=== PATIENT | female | born 1985 | race Caucasian/White ===

== ENCOUNTER 2016-08-19 17:33 | Emergency (ER) | payer OTHER ==
--- NOTE | 2016-08-19 18:15 | DIAGNOSTIC IMAGING REPORT ---
PROCEDURE: XR CHEST 2 VIEW INDICATION: FEVER, initial encounter TECHNIQUE: PA and lateral view. COMPARISON: None. FINDINGS: Lungs are clear. Cardiovascular structures are normal. Bony thorax is unremarkable. IMPRESSION: 1. Negative chest.
--- NOTE | 2016-08-19 18:19 | ED ORDER SUMMARY ---
..... Patient: MARLENA NESS OrderSheet [facility] VisitID: [id number] [address] [place] [place] [address] 30y, F Registration Date/Time: 08/19/2016 ORDER SHEET Weight: 59.8 kg (stated) Allergies: No Known Drug Allergy GENERAL ORDERS: Chest 2V Urgent (18:00 08/19/2016 Kami Lombardo) (Ack 18:02 LTapper) (18:19 Consuelo R.N.) MEDICATION ORDERS: Tylenol w Codeine PO 10 mL (HIGH ALERT MEDICATION, NOW) (17:59 08/19/2016 Kami Lombardo) (18:06 Consuelo R.N.) IV FLUIDS: ORDER SHEET NOTES: [Electronically signed by Jovita Chew P.A.-C (18:28 08/19/2016)] [Electronically signed by Areli Rolle R.N. (18:34 08/19/2016)] [Electronically locked/signed by Areli Rolle R.N. (18:34 08/19/2016)]
--- NOTE | 2016-08-19 18:19 | ED CLINICAL REPORT ---
Clinical Report - Physicians/Mid Levels [facility] [address] [place] [address] 08/19/2016 17:37 Patient: MARLENA NESS Time Seen: 18:04 Aug 19 2016. Arrived- By private vehicle. Historian- patient. HISTORY OF PRESENT ILLNESS Chief Complaint: COUGH, SORE THROAT, FEVER and CHILLS. 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 The illness is described as mild. The patient has had a cough, a sore throat, hoarseness, nasal congestion and a nasal discharge. No sputum production or chest discomfort or pain. She has had fever (low grade up to 100). (Patient reports generalized flulike symptoms over the last 7 days, which are improving, however she has not persisted with a cough. Multiple sick contacts ill at home, including HER-2 children. No recent travel. No hemoptysis. Over the last few days patient is also told a superior orbital left side headache, with nausea, associated with similar symptoms from her chronic migraines. PT sees neurology, next visit in 7-10 days.). Additional history - The patient has had contact with a sick individual. No recent travel. REVIEW OF SYSTEMS Last normal menstrual period now. She has had a headache and nausea. No vomiting, diarrhea, pedal edema or calf pain. All systems otherwise negative, except as recorded above. PAST HISTORY No history of asthma. Problems: Hemiplegic migraines. Additional Surgeries: . LEEP. Oophorectomy. Shoulder Surgery. Medications: None. Allergies: No Known Drug Allergy. SOCIAL HISTORY Never smoker. Alcohol use. ADDITIONAL NOTES The nursing notes have been reviewed. PHYSICAL EXAM Vital Signs: 08/19/2016 17:49 BP: 114/85. HR: 80. RR: 18. O2 saturation: 100%. Temp: 99.1 F. Pain level now: 5/10. Appearance: Alert. No apparent distress. Head: No tenderness to palpation/percussion over the sinuses. Eyes: Eyes normal inspection. ENT: Ears normal. Pharynx normal. Uvula midline. No nasal discharge, pharyngeal erythema, mouth ulcerations or peritonsillar mass. Neck: Normal inspection. No meningeal signs or lymphadenopathy. CVS: Normal heart rate and rhythm. Heart sounds normal. Respiratory: No respiratory distress. Breath sounds normal. No splinting. Back: Normal inspection. No CVA tenderness. Skin: Skin warm. Normal skin color. Neuro: Oriented X 3. No motor deficit. LABS, X-RAYS, AND EKG Chest X-ray: (IMPRESSION: 1. Negative chest. Electronically Final signed by:Tal Correa MD 08/19/2016 6:15:41 PM). PROGRESS AND PROCEDURES Course of Care: lungs clear, good o2 sat, afebrile, normacardic, no further acute work up in er. No hemoptysis, no foreign travel. Likely residual of flue sx, with early bronchitis, suspected viral as well. Pt in the er with tee, that is consistent with what she describes as common tee for her, suspicion for new tee due to meningitis/ ich/ sah is low given her typical sx, that do not acutely appear to be debilitating. Patient is stable. Physical exam findings are improved. Symptoms better. Patient/family counseled. Differential Diagnosis: I considered viral bronchitis, laryngotracheobronchitis, croup, viral pneumonia, bacterial bronchitis, bacterial tracheobronchitis, bacterial pneumonia, tuberculosis, lung abscess, mycoplasmal bronchitis, mycoplasmal pneumonia, chlamydial bronchitis, chlamydial pneumonia, bronchospasm, allergic bronchospasm, irritant bronchospasm, lung cancer, pulmonary embolism and adverse drug reaction as a possible cause of cough in this patient. This is a partial list of diagnoses considered. Disposition: Discharged. CLINICAL IMPRESSION Acute upper respiratory infection. Headache. INSTRUCTIONS (humidified air/ steam). Prescription Medications: Robitussin A-C cough syrup take one (1) teaspoon orally every 6 hours as needed for cough for 3 days. Dispense sixty (60) mL. No refill. Substitution is permissible. Tessalon Perles 100 mg: take 1 orally every 8 hours as needed for cough. Dispense ten (10). No refills. Substitution is permissible. OTC Medications: Take OTC medications according to label instructions. Available over the counter. Acetaminophen (available over the counter): take according to label instructions. Motrin (available over the counter): take according to label instructions. Follow-up: Follow up with your doctor Tuesday if not well. (Electronically signed by Jovita Chew P.A.-C 08/19/2016 18:28)
--- NOTE | 2016-08-19 18:19 | ED CLINICAL REPORT ---
Clinical Report - Physicians/Mid Levels [facility] [address] [place] [address] 08/19/2016 17:37 Patient: MARLENA NESS Time Seen: 18:04 Aug 19 2016. Arrived- By private vehicle. Historian- patient. HISTORY OF PRESENT ILLNESS Chief Complaint: COUGH, SORE THROAT, FEVER and CHILLS. 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 The illness is described as mild. The patient has had a cough, a sore throat, hoarseness, nasal congestion and a nasal discharge. No sputum production or chest discomfort or pain. She has had fever (low grade up to 100). (Patient reports generalized flulike symptoms over the last 7 days, which are improving, however she has not persisted with a cough. Multiple sick contacts ill at home, including HER-2 children. No recent travel. No hemoptysis. Over the last few days patient is also told a superior orbital left side headache, with nausea, associated with similar symptoms from her chronic migraines. PT sees neurology, next visit in 7-10 days.). Additional history - The patient has had contact with a sick individual. No recent travel. REVIEW OF SYSTEMS Last normal menstrual period now. She has had a headache and nausea. No vomiting, diarrhea, pedal edema or calf pain. All systems otherwise negative, except as recorded above. PAST HISTORY No history of asthma. Problems: Hemiplegic migraines. Additional Surgeries: . LEEP. Oophorectomy. Shoulder Surgery. Medications: None. Allergies: No Known Drug Allergy. SOCIAL HISTORY Never smoker. Alcohol use. ADDITIONAL NOTES The nursing notes have been reviewed. PHYSICAL EXAM Vital Signs: 08/19/2016 17:49 BP: 114/85. HR: 80. RR: 18. O2 saturation: 100%. Temp: 99.1 F. Pain level now: 5/10. Appearance: Alert. No apparent distress. Head: No tenderness to palpation/percussion over the sinuses. Eyes: Eyes normal inspection. ENT: Ears normal. Pharynx normal. Uvula midline. No nasal discharge, pharyngeal erythema, mouth ulcerations or peritonsillar mass. Neck: Normal inspection. No meningeal signs or lymphadenopathy. CVS: Normal heart rate and rhythm. Heart sounds normal. Respiratory: No respiratory distress. Breath sounds normal. No splinting. Back: Normal inspection. No CVA tenderness. Skin: Skin warm. Normal skin color. Neuro: Oriented X 3. No motor deficit. LABS, X-RAYS, AND EKG Chest X-ray: (IMPRESSION: 1. Negative chest. Electronically Final signed by:Tal Correa MD 08/19/2016 6:15:41 PM). PROGRESS AND PROCEDURES Course of Care: lungs clear, good o2 sat, afebrile, normacardic, no further acute work up in er. No hemoptysis, no foreign travel. Likely residual of flue sx, with early bronchitis, suspected viral as well. Pt in the er with tee, that is consistent with what she describes as common tee for her, suspicion for new tee due to meningitis/ ich/ sah is low given her typical sx, that do not acutely appear to be debilitating. Patient is stable. Physical exam findings are improved. Symptoms better. Patient/family counseled. Differential Diagnosis: I considered viral bronchitis, laryngotracheobronchitis, croup, viral pneumonia, bacterial bronchitis, bacterial tracheobronchitis, bacterial pneumonia, tuberculosis, lung abscess, mycoplasmal bronchitis, mycoplasmal pneumonia, chlamydial bronchitis, chlamydial pneumonia, bronchospasm, allergic bronchospasm, irritant bronchospasm, lung cancer, pulmonary embolism and adverse drug reaction as a possible cause of cough in this patient. This is a partial list of diagnoses considered. Disposition: Discharged. CLINICAL IMPRESSION Acute upper respiratory infection. Headache. INSTRUCTIONS (humidified air/ steam). Prescription Medications: Robitussin A-C cough syrup take one (1) teaspoon orally every 6 hours as needed for cough for 3 days. Dispense sixty (60) mL. No refill. Substitution is permissible. Tessalon Perles 100 mg: take 1 orally every 8 hours as needed for cough. Dispense ten (10). No refills. Substitution is permissible. OTC Medications: Take OTC medications according to label instructions. Available over the counter. Acetaminophen (available over the counter): take according to label instructions. Motrin (available over the counter): take according to label instructions. Follow-up: Follow up with your doctor Tuesday if not well. (Electronically signed by Jovita Chew P.A.-C 08/19/2016 18:28)
--- NOTE | 2016-08-19 18:19 | ED ORDER SUMMARY ---
..... Patient: MARLENA NESS OrderSheet [facility] VisitID: [id number] [address] [place] [address] 30y, F Registration Date/Time: 08/19/2016 ORDER SHEET Weight: 59.8 kg (stated) Allergies: No Known Drug Allergy GENERAL ORDERS: Chest 2V Urgent (18:00 08/19/2016 Kami Lombardo) (Ack 18:02 LTapper) (18:19 Consuelo R.N.) MEDICATION ORDERS: Tylenol w Codeine PO 10 mL (HIGH ALERT MEDICATION, NOW) (17:59 08/19/2016 Kami Lombardo) (18:06 Consuelo R.N.) IV FLUIDS: ORDER SHEET NOTES: [Electronically signed by Jovita Chew P.A.-C (18:28 08/19/2016)] [Electronically signed by Areli Rolle R.N. (18:34 08/19/2016)] [Electronically locked/signed by Areli Rolle R.N. (18:34 08/19/2016)]
--- NOTE | 2016-08-19 18:19 | ED NURSING NOTES ---
Clinical Report - Nurses [facility] [address] [place] [address] 08/19/2016 17:37 Patient: MARLENA NESS TRIAGE Triage time 17:49. Acuity: LEVEL 3. Chief Complaint: COUGH and FEVER. Alert. No acute distress. EVER COMA SCORE: [place] Coma Scale: 15- eyes open spontaneously (4); best verbal response- oriented x 4 (5); best motor response- obeys commands (6). --17:54 Kenya Murray R.N. 17:49 08/19/16. BP: 114/85. HR: 80. RR: 18. O2 saturation: 100%. Temp: 99.1 F (oral). Pain level now: 5/10. --17:54 Kenya Murray R.N. Weight: 59.8 kg stated. Height/Length: 64 inches Per Patient. BMI: 22.6. --17:53 Kenya Murray R.N. Medications None. --17:50 Kenya Murray R.N. Medication/allergy information source: the patient. --17:54 Kenya Murray R.N. Allergies No Known Drug Allergy. --17:50 Kenya Murray R.N. History Arrived by private vehicle. Historian: patient. Unaccompanied. Primary physician (Devi). Onset. (about 9 days). She has had a headache. PAST MEDICAL HX: Last normal menstrual period now. SOCIAL HX: Smoker- current status unknown (no). Occasional alcohol use. No drug use. FALL RISK ASSESSMENT: Fall risk assessment completed. No fall risk identified. FUNCTIONAL ASSESSMENT: Functional assessment: no impairments noted. LEARNING NEEDS ASSESSMENT: The learning needs assessment revealed no barriers. --17:54 Kenya Murray R.N. PROBLEMS: Hemiplegic migraines. --17:52 Kenya Murray R.N. ADDITIONAL SURGERIES: . LEEP. Oophorectomy. Shoulder Surgery. --17:52 Kenya Murray R.N. Assessment GENERAL / NEURO / PSYCH: Alert. Oriented X 4. Appears in no acute distress. Patient appears calm and cooperative. RESPIRATORY: Respirations not labored. SKIN: Skin is warm and dry. --17:54 Kenya Murray R.N. Interventions ID band on patient. To treatment room. --17:54 Kenya Murray R.N. PHYSICAL ASSESSMENT Ambulatory to room. GENERAL / NEURO / PSYCH: Oriented X 4. Appears in no acute distress. HEENT: Pupils equal, round and reactive to light. RESPIRATORY: Cough. CVS: Capillary refill less than 2 seconds. SKIN: Skin is warm and dry. --18:32 Areli Rolle R.N. NURSING PROGRESS NOTES 18:06 08/19/2016 TYLENOL W CODEINE (Acetaminophen-Codeine) PO 10 mL given. Allergies verified and confirmed 5 rights. --18:06 Areli Rolle R.N. ( Pt has been seen and assessed by PA. Plan for discharge.). --18:33 Areli Rolle R.N. DISPOSITION / DISCHARGE 18:33 08/19/16. HR: 94. RR: 18. O2 saturation: 100%. Temp: 99.1 F. Pain level now 3/10. --18:34 Areli Rolle R.N. Departure time: 18:34 Aug 19 2016. --18:34 Areli Rolle R.N. Locked/Released at 08/19/2016 18:34 by Areli Rolle R.N.
--- NOTE | 2016-08-19 18:19 | ED NURSING NOTES ---
Clinical Report - Nurses [facility] [address] [place] [address] 08/19/2016 17:37 Patient: MARLENA NESS TRIAGE Triage time 17:49. Acuity: LEVEL 3. Chief Complaint: COUGH and FEVER. Alert. No acute distress. EVER COMA SCORE: [place] Coma Scale: 15- eyes open spontaneously (4); best verbal response- oriented x 4 (5); best motor response- obeys commands (6). --17:54 Kenya Murray R.N. 17:49 08/19/16. BP: 114/85. HR: 80. RR: 18. O2 saturation: 100%. Temp: 99.1 F (oral). Pain level now: 5/10. --17:54 Kenya Murray R.N. Weight: 59.8 kg stated. Height/Length: 64 inches Per Patient. BMI: 22.6. --17:53 Kenya Murray R.N. Medications None. --17:50 Kenya Murray R.N. Medication/allergy information source: the patient. --17:54 Kenya Murray R.N. Allergies No Known Drug Allergy. --17:50 Kenya Murray R.N. History Arrived by private vehicle. Historian: patient. Unaccompanied. Primary physician (Devi). Onset. (about 9 days). She has had a headache. PAST MEDICAL HX: Last normal menstrual period now. SOCIAL HX: Smoker- current status unknown (no). Occasional alcohol use. No drug use. FALL RISK ASSESSMENT: Fall risk assessment completed. No fall risk identified. FUNCTIONAL ASSESSMENT: Functional assessment: no impairments noted. LEARNING NEEDS ASSESSMENT: The learning needs assessment revealed no barriers. --17:54 Kenya Murray R.N. PROBLEMS: Hemiplegic migraines. --17:52 Kenya Murray R.N. ADDITIONAL SURGERIES: . LEEP. Oophorectomy. Shoulder Surgery. --17:52 Kenya Murray R.N. Assessment GENERAL / NEURO / PSYCH: Alert. Oriented X 4. Appears in no acute distress. Patient appears calm and cooperative. RESPIRATORY: Respirations not labored. SKIN: Skin is warm and dry. --17:54 Kenya Murray R.N. Interventions ID band on patient. To treatment room. --17:54 Kenya Murray R.N. PHYSICAL ASSESSMENT Ambulatory to room. GENERAL / NEURO / PSYCH: Oriented X 4. Appears in no acute distress. HEENT: Pupils equal, round and reactive to light. RESPIRATORY: Cough. CVS: Capillary refill less than 2 seconds. SKIN: Skin is warm and dry. --18:32 Areli Rolle R.N. NURSING PROGRESS NOTES 18:06 08/19/2016 TYLENOL W CODEINE (Acetaminophen-Codeine) PO 10 mL given. Allergies verified and confirmed 5 rights. --18:06 Areli Rolle R.N. ( Pt has been seen and assessed by PA. Plan for discharge.). --18:33 Areli Rolle R.N. DISPOSITION / DISCHARGE 18:33 08/19/16. HR: 94. RR: 18. O2 saturation: 100%. Temp: 99.1 F. Pain level now 3/10. --18:34 Areli Rolle R.N. Departure time: 18:34 Aug 19 2016. --18:34 Areli Rolle R.N. Locked/Released at 08/19/2016 18:34 by Areli Rolle R.N.
--- NOTE | 2016-08-19 18:34 | ED MAR SUMMARY ---
..... Medication Administration Record [facility] [address] [place] [address] Patient: MARLENA NESS Visit ID: [id number] 30y, F Weight: 59.8 kg Height/Length: 64 in BMI: 22.6 ALLERGIES: No Known Drug Allergy Given 18:06 08/19/2016 Areli Rolle R.N. Medication Administered: TYLENOL W CODEINE [PO] (ACETAMINOPHEN-CODEINE), Dose: 10 mL PO. Medication Ordered: Tylenol w Codeine PO 10 mL (HIGH ALERT MEDICATION, NOW).
--- NOTE | 2016-08-19 18:34 | ED MAR SUMMARY ---
..... Medication Administration Record [facility] [address] [place] [address] Patient: MARLENA NESS Visit ID: [id number] 30y, F Weight: 59.8 kg Height/Length: 64 in BMI: 22.6 ALLERGIES: No Known Drug Allergy Given 18:06 08/19/2016 Areli Rolle R.N. Medication Administered: TYLENOL W CODEINE [PO] (ACETAMINOPHEN-CODEINE), Dose: 10 mL PO. Medication Ordered: Tylenol w Codeine PO 10 mL (HIGH ALERT MEDICATION, NOW).
--- NOTE | 2016-08-19 18:34 | ED MED RECONCILIATION SUMMARY ---
Patient: MARLENA NESS Medication Reconciliation Report [facility] VisitID: [id number] [address] [place] [address] 30y, F Registration Date/Time: 08/19/2016 Weight: 59.8 kg Height/Length: 64 in. BMI: 22.6 ALLERGIES: No Known Drug Allergy The patient's Home Medications are listed below: NONE. The source(s) of the original Home Medication information: patient The following Medications were given to the patient in the Emergency Department: TYLENOL W CODEINE [PO] PO 10 mL, administered: 08/19/2016 6:06:00 PM The following Medications were prescribed to the patient: Take OTC medications according to label instructions. Available over the counter. -- Jovita Chew P.A.-C Acetaminophen (available over the counter): take according to label instructions. -- Jovita Chew, P.A.-C Motrin (available over the counter): take according to label instructions. -- Jovita Chew, P.A.-C Robitussin A-C cough syrup take one (1) teaspoon orally every 6 hours as needed for cough for 3 days. Dispense sixty (60) mL. No refill. Substitution is permissible. -- Jovita Chew, P.A.-C Tessalon Perles 100 mg: take 1 orally every 8 hours as needed for cough. Dispense ten (10). No refills. Substitution is permissible. -- Jovita Chew, P.A.-C
--- NOTE | 2016-08-19 18:34 | ED DISCHARGE INSTRUCTIONS ---
Patient: MARLENA NESS General Instructions [facility] VisitID: [id number] [address] [place] [address] 30y, F Registration Date/Time: 08/19/2016 Acute upper respiratory infection. Headache. INSTRUCTIONS (humidified air/ steam). Prescription Medications: Robitussin A-C cough syrup take one (1) teaspoon orally every 6 hours as needed for cough for 3 days. Dispense sixty (60) mL. No refill. Substitution is permissible. Tessalon Perles 100 mg: take 1 orally every 8 hours as needed for cough. Dispense ten (10). No refills. Substitution is permissible. OTC Medications: Take OTC medications according to label instructions. Available over the counter. Acetaminophen (available over the counter): take according to label instructions. Motrin (available over the counter): take according to label instructions. Follow-up: Follow up with your doctor Tuesday if not well. ADDITIONAL INFORMATION Viral Respiratory Illness [Adult] You have an Upper Respiratory Illness (URI) caused by a virus. This illness is contagious during the first few days. It is spread through the air by coughing and sneezing or by direct contact (touching the sick person and then touching your own eyes, nose or mouth). Most viral illnesses go away within 7-10 days with rest and simple home remedies. Sometimes, the illness may last for several weeks. Antibiotics will not kill a virus and are generally not prescribed for this condition. Home Care: 1) If symptoms are severe, rest at home for the first 2-3 days. When you resume activity, don't let yourself get too tired. 2) Avoid being exposed to cigarette smoke (yours or others). 3) Tylenol (acetaminophen) or ibuprofen (Advil, Motrin) will help fever, muscle aching and headache. (Persons under 18 with fever should not take aspirin since this may cause liver damage.) 4) Your appetite may be poor, so a light diet is fine. Avoid dehydration by drinking 6-8 glasses of fluids per day (water, soft drinks, juices, tea, soup). Extra fluids will help loosen secretions in the nose and lungs. 5) [id number] cold medicines will not shorten the length of time youre sick, but they may be helpful for the following symptoms: cough (Robitussin DM); sore throat (Chloraseptic lozenges or spray); nasal and sinus congestion (Actifed, Sudafed, Chlortrimeton). Follow Up with your doctor or as advised if you dont improve over the next week. Get Prompt Medical Attention if any of the following occur: -- Cough with lots of colored sputum (mucus) or blood in your sputum -- Chest pain, shortness of breath, wheezing or have trouble breathing -- Severe headache; face, neck or ear pain -- Fever over 100.4 F (38.0 C) for more than three days -- You cant swallow due to throat pain Benzonatate Oral capsule, liquid filled What is this medicine? BENZONATATE (thiago ANA na bose) is used to treat cough. How should I use this medicine? Take this medicine by mouth with a glass of water. Follow the directions on the prescription label. Avoid breaking, chewing, or sucking the capsule, as this can cause serious side effects. Take your medicine at regular intervals. Do not take your medicine more often than directed. Talk to your electrician front regarding the use of this medicine in children. While this drug may be prescribed for children as young as 10 years old for selected conditions, precautions do apply. What side effects may I notice from receiving this medicine? Side effects that you should report to your doctor or health healthcare technician as soon as possible: allergic reactions like skin rash, itching or hives, swelling of the face, lips, or tongue breathing problems chest pain confusion or hallucinations irregular heartbeat numbness of mouth or throat seizures Side effects that usually do not require medical attention (report to your doctor or health healthcare technician if they continue or are bothersome): burning feeling in the eyes constipation headache nasal congestion stomach upset What may interact with this medicine? Do not take this medicine with any of the following medications: MAOIs like Carbex, Eldepryl, Marplan, Nardil, and Parnate What if I miss a dose? If you miss a dose, take it as soon as you can. If it is almost time for your next dose, take only that dose. Do not take double or extra doses. Where should I keep my medicine? Keep out of the reach of children. Store at room temperature between 15 and 30 degrees C (59 and 86 degrees F). Keep tightly closed. Protect from light and moisture. Throw away any unused medicine after the expiration date. What should I tell my health care provider before I take this medicine? They need to know if you have any of these conditions: kidney or liver disease an unusual or allergic reaction to benzonatate, anesthetics, other medicines, foods, dyes, or preservatives or trying to get breast-feeding What should I watch for while using this medicine? Tell your doctor if your symptoms do not improve or if they get worse. If you have a high fever, skin rash, or headache, see your health healthcare technician. You may get drowsy or dizzy. Do not drive, use machinery, or do anything that needs mental alertness until you know how this medicine affects you. Do not sit or stand up quickly, especially if you are an older patient. This reduces the risk of dizzy or fainting spells. You have been given the following additional information: Uri, Viral, No Abx (Adult) Benzonatate Oral capsule, liquid filled (Electronically signed by Jovita Chew P.A.-C 08/19/2016 18:28)
--- NOTE | 2016-08-19 18:34 | ED MED RECONCILIATION SUMMARY ---
Patient: MARLENA NESS Medication Reconciliation Report [facility] VisitID: [id number] [address] [place] [address] 30y, F Registration Date/Time: 08/19/2016 Weight: 59.8 kg Height/Length: 64 in. BMI: 22.6 ALLERGIES: No Known Drug Allergy The patient's Home Medications are listed below: NONE. The source(s) of the original Home Medication information: patient The following Medications were given to the patient in the Emergency Department: TYLENOL W CODEINE [PO] PO 10 mL, administered: 08/19/2016 6:06:00 PM The following Medications were prescribed to the patient: Take OTC medications according to label instructions. Available over the counter. -- Jovita Chew P.A.-C Acetaminophen (available over the counter): take according to label instructions. -- Jovita Chew, P.A.-C Motrin (available over the counter): take according to label instructions. -- Jovita Chew, P.A.-C Robitussin A-C cough syrup take one (1) teaspoon orally every 6 hours as needed for cough for 3 days. Dispense sixty (60) mL. No refill. Substitution is permissible. -- Jovita Chew, P.A.-C Tessalon Perles 100 mg: take 1 orally every 8 hours as needed for cough. Dispense ten (10). No refills. Substitution is permissible. -- Jovita Chew, P.A.-C
--- NOTE | 2016-08-19 18:34 | ED DISCHARGE INSTRUCTIONS ---
Patient: MARLENA NESS General Instructions [facility] VisitID: [id number] [address] [place] [address] 30y, F Registration Date/Time: 08/19/2016 Acute upper respiratory infection. Headache. INSTRUCTIONS (humidified air/ steam). Prescription Medications: Robitussin A-C cough syrup take one (1) teaspoon orally every 6 hours as needed for cough for 3 days. Dispense sixty (60) mL. No refill. Substitution is permissible. Tessalon Perles 100 mg: take 1 orally every 8 hours as needed for cough. Dispense ten (10). No refills. Substitution is permissible. OTC Medications: Take OTC medications according to label instructions. Available over the counter. Acetaminophen (available over the counter): take according to label instructions. Motrin (available over the counter): take according to label instructions. Follow-up: Follow up with your doctor Tuesday if not well. ADDITIONAL INFORMATION Viral Respiratory Illness [Adult] You have an Upper Respiratory Illness (URI) caused by a virus. This illness is contagious during the first few days. It is spread through the air by coughing and sneezing or by direct contact (touching the sick person and then touching your own eyes, nose or mouth). Most viral illnesses go away within 7-10 days with rest and simple home remedies. Sometimes, the illness may last for several weeks. Antibiotics will not kill a virus and are generally not prescribed for this condition. Home Care: 1) If symptoms are severe, rest at home for the first 2-3 days. When you resume activity, don't let yourself get too tired. 2) Avoid being exposed to cigarette smoke (yours or others). 3) Tylenol (acetaminophen) or ibuprofen (Advil, Motrin) will help fever, muscle aching and headache. (Persons under 18 with fever should not take aspirin since this may cause liver damage.) 4) Your appetite may be poor, so a light diet is fine. Avoid dehydration by drinking 6-8 glasses of fluids per day (water, soft drinks, juices, tea, soup). Extra fluids will help loosen secretions in the nose and lungs. 5) [id number]-[id number] cold medicines will not shorten the length of time youre sick, but they may be helpful for the following symptoms: cough (Robitussin DM); sore throat (Chloraseptic lozenges or spray); nasal and sinus congestion (Actifed, Sudafed, Chlortrimeton). Follow Up with your doctor or as advised if you dont improve over the next week. Get Prompt Medical Attention if any of the following occur: -- Cough with lots of colored sputum (mucus) or blood in your sputum -- Chest pain, shortness of breath, wheezing or have trouble breathing -- Severe headache; face, neck or ear pain -- Fever over 100.4 F (38.0 C) for more than three days -- You cant swallow due to throat pain Benzonatate Oral capsule, liquid filled What is this medicine? BENZONATATE (thiago ANA na bose) is used to treat cough. How should I use this medicine? Take this medicine by mouth with a glass of water. Follow the directions on the prescription label. Avoid breaking, chewing, or sucking the capsule, as this can cause serious side effects. Take your medicine at regular intervals. Do not take your medicine more often than directed. Talk to your margarine churn operator regarding the use of this medicine in children. While this drug may be prescribed for children as young as 10 years old for selected conditions, precautions do apply. What side effects may I notice from receiving this medicine? Side effects that you should report to your doctor or health transitional care liaison as soon as possible: allergic reactions like skin rash, itching or hives, swelling of the face, lips, or tongue breathing problems chest pain confusion or hallucinations irregular heartbeat numbness of mouth or throat seizures Side effects that usually do not require medical attention (report to your doctor or health transitional care liaison if they continue or are bothersome): burning feeling in the eyes constipation headache nasal congestion stomach upset What may interact with this medicine? Do not take this medicine with any of the following medications: MAOIs like Carbex, Eldepryl, Marplan, Nardil, and Parnate What if I miss a dose? If you miss a dose, take it as soon as you can. If it is almost time for your next dose, take only that dose. Do not take double or extra doses. Where should I keep my medicine? Keep out of the reach of children. Store at room temperature between 15 and 30 degrees C (59 and 86 degrees F). Keep tightly closed. Protect from light and moisture. Throw away any unused medicine after the expiration date. What should I tell my health care provider before I take this medicine? They need to know if you have any of these conditions: kidney or liver disease an unusual or allergic reaction to benzonatate, anesthetics, other medicines, foods, dyes, or preservatives or trying to get breast-feeding What should I watch for while using this medicine? Tell your doctor if your symptoms do not improve or if they get worse. If you have a high fever, skin rash, or headache, see your health transitional care liaison. You may get drowsy or dizzy. Do not drive, use machinery, or do anything that needs mental alertness until you know how this medicine affects you. Do not sit or stand up quickly, especially if you are an older patient. This reduces the risk of dizzy or fainting spells. You have been given the following additional information: Uri, Viral, No Abx (Adult) Benzonatate Oral capsule, liquid filled (Electronically signed by Jovita Chew P.A.-C 08/19/2016 18:28)
== END 2016-08-19 18:30 | disposition home or self-care (01) ==
LOC: ED SRH 17:33
DX: J06.9 Acute upper respiratory infection, unspecified (principal); R51 Headache